=== PATIENT | male | born 1945 | race Caucasian/White ===

== ENCOUNTER 2019-07-22 20:50 | Emergency (ER) | payer OTHER, MEDICARE, MEDICAID, SELFPAY ==
--- NOTE | ~2019-07-22 | CT_ITS ---
EXAMINATION: CT lumbar spine wo con DATE: 07/22/2019 22:20 INDICATION: Low back pain. Fall. TECHNIQUE: Computed tomography (CT) of the lumbar spine was performed without intravenous contrast. A utomated exposure control and iterative reconstruction technique were employed. The dose-length produ ct was 1265.54 mGy-cm. COMPARISON: None FINDINGS: There are 5 stones in right kidney measuring up to 3 mm. There is a 2.2 cm cyst in right ki dney. There is a 4 mm stone in left kidney. There is 7 degrees levocurvature of lumbar spine. There i s 6 mm retrolisthesis of L2 on L3 and 6 mm anterolisthesis of L5 on S1. There is mild chronic anterio r wedging of T12 and L1 vertebral bodies. There is severely decreased disc height at L2-L3, L4-L5, an d L5-S1. There are chronic bilateral L5 pars defects. The following disc levels are specifically disc ussed: L1-L2: The disc is bulging. There is mild bilateral facet joint osteoarthritis. There is no neural fo raminal stenosis. There is no central canal stenosis. L2-L3: The disc is bulging. There is mild bilateral facet joint osteoarthritis. There is moderate elaine ateral neural foraminal stenosis. There is moderate central canal stenosis. L3-L4: The disc is bulging. There is mild bilateral facet joint osteoarthritis. There is mild right a nd moderate left neural foraminal stenosis. There is severe central canal stenosis. L4-L5: The disc is bulging. There is severe bilateral facet joint osteoarthritis. There is moderate b ilateral neural foraminal stenosis. There is severe central canal stenosis. L5-S1: The disc is bulging. There is severe bilateral facet joint osteoarthritis. There is moderate r ight and severe left neural foraminal stenosis. There is mild central canal stenosis. IMPRESSION: 1. No acute fracture. 2. Severe lumbar spondylosis. 3. Chronic bilateral L5 pars defects with grade 1 anterolisthesis of L5 on S1. Reviewed, dictated and finalized at location A. ARE CASE WORKER
--- NOTE | ~2019-07-22 | XR_ITS ---
EXAMINATION: XR chest 1V DATE: 07/22/2019 22:36 INDICATION: Fall. TECHNIQUE: A single frontal view of the chest was obtained. COMPARISON: None. FINDINGS: There is mild atelectasis in left lower lung zone. No pleural effusion or pneumothorax. The heart size is normal. IMPRESSION: 1. Mild atelectasis in left lower lung zone. Reviewed, dictated and finalized at location A. STANT GENERAL MANAGER
--- NOTE | ~2019-07-22 | XR_ITS ---
EXAMINATION: XR hip LT 2V w AP pelvis DATE: 07/22/2019 22:35 INDICATION: Left hip pain. Fall. TECHNIQUE: An anteroposterior view of the pelvis and 3 views of left hip were obtained. COMPARISON: None. FINDINGS: There is lumbar levocurvature and severe spondylosis. No fracture. There is moderate osteoa rthritis of the hips. IMPRESSION: 1. Moderate osteoarthritis of the hips. Reviewed, dictated and finalized at location A. NIC SECTION TECHNICAL LEAD
--- NOTE | ~2019-07-22 | XR_ITS ---
EXAMINATION: XR ankle RT min 3V DATE: 07/22/2019 22:35 INDICATION: Left ankle pain. Fall. TECHNIQUE: 4 views of left ankle were obtained. COMPARISON: None. FINDINGS: There is an old healed fracture of tibial diaphysis. No acute fracture. There is mild midfo ot osteoarthritis. There are enthesophytes at the posterior and plantar aspects of calcaneal tuberosi ty. There is ankle soft tissue swelling. IMPRESSION: 1. No acute fracture. Reviewed, dictated and finalized at location A. ONENT LAB TECH IMPRESSION: 1. No acute fracture.
[2019-07-22 21:06] VITALS: BP 151/84; PULSE 82; RESP 16; TEMP 36.3; O2SAT 97
[2019-07-22 22:00] VITALS: BP 148/82; PULSE 80; RESP 20; O2SAT 98
--- NOTE | 2019-07-22 22:06 | ED.FALL ---
HPI - Fall General Chief Complaint: Fall Stated Complaint: back pain s/p fall Time Seen by Provider: 07/22/19 22:03 Source: patient and family Mode of arrival: ambulatory Limitations: no limitations History of Present Illness HPI Narrative: The pt is a 73 y/o male who presents to the ED c/o a fall which occurred between [id number]. Pt's states that the pt stepped outside to see what the [employer] man had delivered, but he came back in and slipped on the linoleum. He notes that when he fell, he did not hit his head or lose consciousness. He states that he landed on his back, and is currently experiencing left-lumbar back pain, right ankle pain, and left hip pain. He also reports resolved left knee numbness. Pt notes that he takes Aspirin. Denies any bowel or bladder incontinence. MD complaint: fall Onset (ago): hour(s) (4.33 to 5) Fall from: standing Fall witnessed: yes, by family Place fall occurred: home Loss of consciousness: none Symptoms prior to fall: none Context: tripped/slipped Location of injury: back (Lumbar) Associated symptoms (after fall): other (Left knee numbness (Resolved), left hip pain, right ankle pain) Related Data Allergies Allergy/AdvReac Type Severity Reaction Status Date / Time tramadol Allergy Severe Unknown Unverified 07/22/19 22:59 Review of Systems Review of Systems: All systems reviewed & are unremarkable except as noted in HPI and below Musculoskeletal: Musculoskeletal: Reports back pain (Left-lumbar) and Reports other (Right ankle pain, left hip pain) Neurologic: Reports numbness (Left knee (Resolved)) and Denies other (Head injury, loss of consciousness) PMFSH Past Medical History Medical History (Updated 07/22/19 @ 23:20 by Arvind Baig DO) DM II (diabetes mellitus, type II), controlled HTN (hypertension) Surgical History Surgical History (Updated 07/22/19 @ 22:47 by Jerry Almaraz) No history of previous surgery Social History Social History (Updated 07/22/19 @ 22:47 by Jerry Almaraz) Smoking status: Never smoker Gender identity (if verbalized by the patient): Male Exam Narrative: Exam Narrative: APPEARANCE: Well appearing, no apparent distress, well-nourished. HEENT: normocephalic atraumtaic. TMs clear bilaterally. No facial tenderness EYES: PERRL NECK: Supple. No midline tenderness to palpation. Full range of motion without pain RESPIRATORY: No respiratory distress. Clear to auscultation bilaterally CARDIOVASCULAR: Regular rate and rhythm without murmurs rubs or gallops. ABDOMINAL: Soft, nontender, nondistended, no rebound or guarding MUSCULOSKELETAl: Moves all extremities. No tenderness to palpation of bilateral upper extremities. No tenderness palpation of the right hip or knee, tender palpation of the right anterior lateral medial ankle, no swelling or ecchymosis, tender palpation of the left lateral hip, pain with flexion greater than 45 degrees, no tenderness of left knee or ankle, bilateral dorsalis pedis pulse 2+, neurovascular intact no clubbing cyanosis or edema Back: No midline thoracic or lumbar tenderness to palpation tender palpation over left paravertebral muscles L3-5 (fretfulness region, pain increased with forward flexion Pelvis: Stable, nontender NEURO: Awake and alert ?3. Follows commands. Speech normal. No focal deficits. Patient has pinprick sensation down the bilateral legs with no numbness or deficits SKIN:: Warm, dry. Normal Color Course Course Emergency Course: Patient able to get up and ambulate in ED with no difficulty Discussed with patient results of workup and diagnosis. Discussed need for follow-up with primary care, proper use of medication, and reasons to return to the emergency department. Patient understands and agrees to current treatment plan Vital Signs Vital signs: Vital Signs Temperature 97.4 F L 07/22/19 21:06 Pulse Rate 82 07/22/19 21:06 Respiratory Rate 16 07/22/19 21:06 Blood Pressure 151/84 H 07/22/19 21:06
[2019-07-22 23:38] VITALS: BP 146/85; PULSE 86; RESP 19; TEMP 36.8; O2SAT 100
--- NOTE | 2019-07-23 08:23 | PCCCNOTE ---
Contacted [facility]: Spoke with MAREN Nielson. Gave ED info and faxed ED progress notes and d/c plan.
== END 2019-07-22 23:40 | disposition home or self-care (01) ==
PROVIDERS: Emergency Provider Emergency Medicine
DX: M54.5 Low back pain (principal); S90.01XA Contusion of right ankle, initial encounter; S70.02XA Contusion of left hip, initial encounter; E11.9 Type 2 diabetes mellitus without complications; I10 Essential (primary) hypertension; M47.816 Spondylosis without myelopathy or radiculopathy, lumbar region; Z79.82 Long term (current) use of aspirin; W01.0XXA Fall on same level from slipping, tripping and stumbling without subsequent striking against object, initial encounter
CPT/HCPCS: 71045; 72131; 73502; 73521; 73610; 99284; A9270

== ENCOUNTER 2020-05-30 21:52 | Emergency (ER) | payer OTHER, MEDICARE, SELFPAY ==
--- NOTE | ~2020-05-30 | XR_ITS ---
EXAMINATION: XR chest 2V DATE: 05/31/2020 03:55 INDICATION: Shortness of breath. TECHNIQUE: Frontal and lateral views of the chest were obtained. COMPARISON: Chest single view 07/22/2019 FINDINGS: The chest demonstrates clear lungs without pneumonia, pleural effusion, or pneumothorax. Th e heart size is normal. IMPRESSION: 1. No acute cardiopulmonary disease. Reviewed, dictated and finalized at location A.
[2020-05-30 22:03] VITALS: BP 146/110; PULSE 90; RESP 20; TEMP 36.4; O2SAT 97
[2020-05-30 23:38] VITALS: BP 143/86; PULSE 92; RESP 22; TEMP 35.9; O2SAT 98
--- NOTE | 2020-05-31 02:39 | ECG_ITS ---
Measurements Intervals [place] Rate: 84 P: 33 IA: 219 QRS: -38 QRSD: 128 T: 102 QT: 395 QTc: 469 Interpretive Statements SINUS RHYTHM WITH FIRST DEGREE AV BLOCK LEFT AXIS DEVIATION RIGHT BUNDLE BRANCH BLOCK LEFT VENTRICULAR HYPERTROPHY AND ST-T CHANGE CONSIDER INFERIOR INFARCT, AGE INDETERMINATE ABNORMAL ECG Electronically Signed On 05-31-2020 7:08:37 CDT by Tommy Mcneal D.O.
[2020-05-31 03:09] VITALS: BP 153/86; PULSE 88; RESP 18; O2SAT 96
[2020-05-31 03:20] LABS: Basophils Percent Auto 0.6 % (0.2-1.2); Eosinophils Absolute Auto 0.1 K/mm3 (0-0.3); Eosinophils Percent Auto 1.5 % (0-4.4); Hematocrit 43.3 % (42.0-52.0); Hemoglobin 14.6 g/dL (14.0-18.0); Immature Granulocyte Absolute 0.06 K/mm3 (0.00-0.031); Immature Granulocyte Percent A 0.9 % (0-0.5); Lymphocytes Absolute Auto 2.06 K/mm3 (0.9-3.2); Lymphocytes Percent Auto 30.5 % (18.3-44.2); Mean Corpuscular HGB Conc 33.7 g/dl (32-36); Mean Corpuscular Hemoglobin 29.3 pg (26-34); Mean Corpuscular Volume 86.9 fl (80-100); Mean Platelet Volume 8.9 fl (7.4-10.4); Monocytes Absolute Auto 0.5 K/mm3 (0.1-0.6); Monocytes Percent Auto 7.5 % (2.6-8.5); Platelet Count Result 184 k/mm3 (150-375); Red Blood Count 4.98 M/mm3 (4.6-6.20); Red Cell Distribution Width 13.5 % (11.5-14.5); White Blood Count 6.8 K/mm3 (4.5-10.0)
--- NOTE | 2020-05-31 03:26 | ED.GENADULT ---
HPI - General Adult General Chief complaint: Anxiety Stated complaint: head congestion, anxiety Time Seen by Provider: 05/31/20 02:24 Source: patient Mode of arrival: ambulatory Limitations: no limitations History of Present Illness HPI narrative: This patient is a 74 year old male with history of hypertension, CAD, Diabetes mellitus, anxiety, PTSD who presents for anxiety and bilateral feet pain. PAtient reports months of bilateral feet pain. He describes his pain has burning and constant. He does reports history of neuropathy diagnosis and he takes gabapentin. He reports he was evluated at the [facility] for his pain. He also reports bilateral feet swelling for several months. He reports that he is having difficulty sleeping due to his anxiety. HE is sleeping on the couch with his feet hanging down. He reports he may be having sob due to anxiety but not with exertion. He also denies chest pain, fever, vomiting. Related Data Allergies Allergy/AdvReac Type Severity Reaction Status Date / Time tramadol Allergy Severe Unknown Verified 05/31/20 03:14 Review of Systems Review of Systems: All systems reviewed & are unremarkable except as noted in HPI and below Constitutional: Constitutional: Denies chills and Denies fever(s) Cardiovascular: Cardiovascular: Denies chest pain Respiratory: Respiratory: Denies cough, Denies dyspnea and Denies wheezing Gastrointestinal: Gastrointestinal: Denies abdominal pain, Denies diarrhea, Denies nausea and Denies vomiting Neurologic: Denies focal weakness and Reports numbness Psychiatric: Psychiatric: Reports anxiety, Denies homicidal ideation and Denies suicidal ideation [facility] Past Medical History Medical History (Updated 05/31/20 @ 04:58 by Arlen Palumbo MD) DM II (diabetes mellitus, type II), controlled HTN (hypertension) Surgical History Surgical History (Updated 07/22/19 @ 22:47 by Jerry Almaraz) No history of previous surgery Social History Social History (Updated 07/22/19 @ 22:47 by Jerry Almaraz) Smoking status: Never smoker Gender identity (if verbalized by the patient): Male Exam Const: General: no acute distress and alert Nutritional Appearance: obese Orientation/consciousness: patient oriented x3 HENMT: Head: normocephalic and atraumatic Face and sinus: face symmetric Mouth: Yes Normal oral and palatal mucosa present, Yes lip normal, Yes oropharynx normal and Yes moist mucous membranes Teeth and gingiva: abnormal tooth and associated gingiva Throat: posterior oropharynx normal, tonsils normal and uvula midline Eyes: Pupils: Equal, round and reactive pupils present EOM: EOMs intact bilaterally Chest: Chest palpation & inspection: normal inspection of the chest Resp: Effort & Inspection: normal respiratory effort, no retractions and no use of accessory muscles Auscultation: clear to auscultation bilaterally and no wheezes GI: GI Palp: Yes Soft to palpation, No Tenderness to palpation present (GI), No Guarding due to palpation present (GI) and No Rigid due to palpation Neuro: General: patient oriented x3 and moves all extremities Extrem: Other: bilateral pedal edema Course Reevaluation(s) Reevaluation #1: PAtient reports he feels better with feet elevated. He has bilateral palpable pedal pulses. I discussed his pain appears to be due to neuropathy. He is unable to tell me what he is on for anxiety or his neuropathy . I Discussed he will need to speak to his PCP about possible increase in dose of gabapentin. Date: 05/31/20 Time: 04:55 Vital Signs Vital signs: Vital Signs Temperature 97.5 F L 05/30/20 22:03 Pulse Rate 90 05/30/20 22:03 Respiratory Rate 20 05/30/20 22:03 Blood Pressure 146/110 H 05/30/20 22:03 Pulse Oximetry 97 05/30/20 22:03 Temperature 96.6 F L 05/30/20 23:38 Pulse Rate 82 05/31/20 05:18 Respiratory Rate 18 05/31/20 05:18 Blood Pressure 142/79 H 05/31/20 05:18 Pulse Oxime
[2020-05-31 03:33] LABS: Alanine Aminotransferase 28 U/L (4-50); Albumin Level 4.1 g/dL (3.5-5.1); Alkaline Phosphatase 97 U/L (38-126); Anion Gap 13 mmol/L (8-16); Aspartate Amino Transferase 23 U/L (17-59); Bilirubin,Total 0.9 mg/dL (0.2-1.3); Blood Urea Nitrogen 16 mg/dL (9-20); Carbon Dioxide 24 mmol/L (22-30); Chloride 98 mmol/L (98-107); Estimated CRCL calculation 83 ml/min; Estimated Glomerular Filt Rate > 60; Glucose 361 mg/dL (75-110); Sodium 135 mmol/L (137-145)
[2020-05-31 03:42] LABS: NT Pro B Type Natriuretic Pept 681 PG/ML (5-100)
[2020-05-31 04:20] VITALS: BP 151/98; PULSE 87; RESP 18; O2SAT 99
[2020-05-31 05:18] VITALS: BP 142/79; PULSE 82; RESP 18; O2SAT 96
== END 2020-05-31 05:20 | disposition home or self-care (01) ==
PROVIDERS: Emergency Provider General Practice
DX: E11.42 Type 2 diabetes mellitus with diabetic polyneuropathy (principal); E11.65 Type 2 diabetes mellitus with hyperglycemia; F41.9 Anxiety disorder, unspecified; I25.10 Atherosclerotic heart disease of native coronary artery without angina pectoris; I10 Essential (primary) hypertension; I44.0 Atrioventricular block, first degree; I45.10 Unspecified right bundle-branch block; R94.31 Abnormal electrocardiogram [ECG] [EKG]; I51.7 Cardiomegaly; F43.10 Post-traumatic stress disorder, unspecified
CPT/HCPCS: 36415; 71046; 80053; 83880; 85025; 93005; 99283

== ENCOUNTER 2020-06-09 21:13 | Emergency (ER) | payer MEDICARE, OTHER, SELFPAY ==
[2020-06-09 21:15] VITALS: BP 151/81; PULSE 94; RESP 16; TEMP 36.4; O2SAT 98
--- NOTE | 2020-06-09 21:25 | ED.LOWEXIN ---
HPI - Extremity Injury (Lower) General Chief Complaint: Extremity Injury, Lower Stated Complaint: my foot Time Seen by Provider: 06/09/20 21:18 History of Present Illness HPI Narrative: History limited by very poor historian. 74 yo male presents from home for foot pain. The pain is bilateral, but worst at the base of his left first toe where he has a red dot. He reports that he was discharged from [facility]. He is not clear on why he was admitted there. He notes that his blood sugar has been poorly controlled. No injury, fever, wound. Related Data Allergies Allergy/AdvReac Type Severity Reaction Status Date / Time tramadol Allergy Severe Unknown Verified 05/31/20 03:14 Review of Systems Review of Systems: All systems reviewed & are unremarkable except as noted in HPI and below Constitutional: Constitutional: Denies fever(s) and Denies weakness Cardiovascular: Cardiovascular: Denies chest pain Respiratory: Respiratory: Denies dyspnea Gastrointestinal: Gastrointestinal: Denies abdominal pain, Denies nausea and Denies vomiting Musculoskeletal: Musculoskeletal: Denies back pain Neurologic: Denies dizziness and Denies weakness [facility] Past Medical History Medical History (Updated 06/09/20 @ 22:59 by Nolan Sauer MD) DM II (diabetes mellitus, type II), controlled HTN (hypertension) Surgical History Surgical History (Updated 07/22/19 @ 22:47 by Jerry Almaraz) No history of previous surgery Social History Social History (Updated 07/22/19 @ 22:47 by Jerry Almaraz) Smoking status: Never smoker Gender identity (if verbalized by the patient): Male Exam Const: General: no acute distress and alert Nutritional Appearance: obese Orientation/consciousness: patient oriented x3 HENMT: Head: normal to inspection Resp: Effort & Inspection: normal respiratory effort Auscultation: clear to auscultation bilaterally Cardio: Rate: regular rate Rhythm: regular rhythm Other: 1+ bilateral DP pulses Skin: Other: Mild erythema to left first MTP Neuro: General: patient oriented x3 and no focal motor deficits Speech: normal speech Gait exam (Neuro): Normal gait present Extrem: Other: 1+ bilateral lower leg edema Course Vital Signs Vital signs: Vital Signs Temperature 36.4 C 06/09/20 21:15 Pulse Rate 94 06/09/20 21:15 Respiratory Rate 16 06/09/20 21:15 Blood Pressure 151/81 H 06/09/20 21:15 Pulse Oximetry 98 06/09/20 21:15 Temperature 36.4 C 06/09/20 21:15 Pulse Rate 94 06/09/20 21:15 Respiratory Rate 16 06/09/20 21:15 Blood Pressure 151/81 H 06/09/20 21:15 Pulse Oximetry 98 06/09/20 21:15 MDM - Extremity Injury (Lower) MDM Narrative Medical decision making narrative: Labs and presentation most consistent with gout. I do not believe there is adequate fluid in the joint for arthrocentesis. He is not a good candidate for glucocorticoids due to his poorly controlled diabetes. I will initiate a short course of colchicine. He likely also has neuropathic pain. Medical Records Attestation: I reviewed the patient's medical records. Lab Data Attestation: I reviewed the patient's lab results. Result diagrams: 06/09/20 21:51 06/09/20 21:51 Labs: Lab Results 06/09/20 06/09/20 06/09/20 Range/Units 21:51 21:51 21:51 WBC 7.0 (4.5-10.0) K/mm3 RBC 4.82 (4.6-6.20) M/mm3 Hgb 14.1 (14.0-18.0) g/dL Hct 42.0 (42.0-52.0) % MCV 87.1 (80-100) fl MCH 29.3 (26-34) pg MCHC 33.6 (32-36) g/dl RDW 13.8 (11.5-14.5) % Plt Count 178 (150-375) k/mm3 MPV 8.8 (7.4-10.4) fl Immature Gran % (Auto) 0.4 (0-0.5) % Neut % (Auto) 58.8 (45.5-73.1) % Lymph % (Auto) 28.5 (18.3-44.2) % [place] % (Auto) 10.3 H (2.6-8.5) % Eos % (Auto) 1.7 (0-4.4) % Baso % (Auto) 0.3 (0.2-1.2) % Lymph # (Auto) 2.00 (0.9-3.2) K/mm3 [place] # (Auto) 0.7 H (0.1-0.6) K/mm3 Eos # (Auto) 0.1 (0-0.3) K/
[2020-06-09 21:59] LABS: Basophils Percent Auto 0.3 % (0.2-1.2); Eosinophils Absolute Auto 0.1 K/mm3 (0-0.3); Eosinophils Percent Auto 1.7 % (0-4.4); Hemoglobin 14.1 g/dL (14.0-18.0); Immature Granulocyte Absolute 0.03 K/mm3 (0.00-0.031); Immature Granulocyte Percent A 0.4 % (0-0.5); Lymphocytes Percent Auto 28.5 % (18.3-44.2); Mean Corpuscular HGB Conc 33.6 g/dl (32-36); Mean Corpuscular Hemoglobin 29.3 pg (26-34); Mean Corpuscular Volume 87.1 fl (80-100); Mean Platelet Volume 8.8 fl (7.4-10.4); Monocytes Absolute Auto 0.7 K/mm3 (0.1-0.6); Monocytes Percent Auto 10.3 % (2.6-8.5); Neutrophils Absolute Auto 4.1 K/mm3 (1.3-6.7); Neutrophils Percent Auto 58.8 % (45.5-73.1); Platelet Count Result 178 k/mm3 (150-375); Red Blood Count 4.82 M/mm3 (4.6-6.20); Red Cell Distribution Width 13.8 % (11.5-14.5)
[2020-06-09 22:07] LABS: Add Urine Microscopic? YES; Appearance Urine Clear (Clear); Bilirubin Urine Negative (Negative); Blood Urine Negative (Negative); Color Urine Yellow (Yellow); Glucose Urine UA 3+ mg/dL (Negative); Ketones Urine Negative (Negative); Leukocyte Esterase Ur Negative LEU/UL (Negative); Nitrate Urine Negative (Negative); Protein Urine 1+ mg/dL (Negative); RBC Urine 0-2 /hpf (0-2); Specific Grav Ur 1.012 (1.001-1.035); Squamous Epithelial Cell Urine Rare /hpf (Few); Urobilinogen Urine Negative mg/dL (<2.0); WBC Urine 0-3 /hpf
[2020-06-09 22:11] LABS: INR 1.1; Prothrombin Time 13.5 Seconds (11.1-14.7)
[2020-06-09 22:12] LABS: Partial Thromboplastin Time 26.6 SECONDS (22.3-36.8)
[2020-06-09 22:15] LABS: Alanine Aminotransferase 24 U/L (4-50); Albumin Level 3.9 g/dL (3.5-5.1); Alkaline Phosphatase 79 U/L (38-126); Anion Gap 9 mmol/L (8-16); Aspartate Amino Transferase 24 U/L (17-59); Bilirubin,Total 0.7 mg/dL (0.2-1.3); Blood Urea Nitrogen 12 mg/dL (9-20); Calcium 8.9 mg/dL (8.4-10.2); Carbon Dioxide 25 mmol/L (22-30); Chloride 99 mmol/L (98-107); Estimated CRCL calculation 95 ml/min; Estimated Glomerular Filt Rate > 60; Glucose 276 mg/dL (75-110); Potassium 3.7 mmol/L (3.4-5.0); Sodium 133 mmol/L (137-145); Uric Acid 5.4 mg/dL (3.5-8.5)
[2020-06-09 22:24] LABS: Troponin I < 0.012 ng/mL (0.000-0.034)
[2020-06-09 22:25] LABS: Erythrocyte Sedimentation Rate 25 mm/hr (0-20)
[2020-06-09] MEDS: COLCHICINE 0.6 MG TABLET 1.2 MG PO (22:45)
[2020-06-09] MEDS: COLCHICINE 0.6 MG TABLET PO (23:45)
[2020-06-09 23:47] VITALS: BP 146/89; PULSE 97; RESP 18; TEMP 36.9; O2SAT 100
== END 2020-06-10 00:22 | disposition home or self-care (01) ==
PROVIDERS: Emergency Provider Emergency Medicine
DX: M79.671 Pain in right foot (principal); E11.9 Type 2 diabetes mellitus without complications; I10 Essential (primary) hypertension
CPT/HCPCS: 36415; 80053; 81001; 83605; 84484; 84550; 85025; 85610; 85652; 85730; 86140; 99284; A9270

== ENCOUNTER 2020-07-04 11:56 | Emergency (ER) | payer OTHER, MEDICARE, SELFPAY ==
--- NOTE | ~2020-07-04 | XR_ITS ---
XR chest 1V portable DATE: 07/04/2020 14:45 INDICATION: Shortness of breath for 3 days. Diabetes type 2 TECHNIQUE: Portable upright AP chest on 07/04/2020 at 1446 hours COMPARISON: 05/31/2020 PA and lateral chest FINDINGS: Borderline heart size. There is aortic calcification and tortuosity. No hilar or mediastina l enlargement is evident. No pulmonary infiltrate or consolidation, pleural effusion or pulmonary vas cular congestion or pneumothorax is noted. Diffuse osteopenia. There is degenerative spurring of the thoracic spine. IMPRESSION: No active pulmonary disease or significant change since 05/31/2020 Reviewed, dictated and finalized at location B. PATIONAL HEALTH SPECIALIST
--- NOTE | 2020-07-04 12:04 | ECG_ITS ---
Measurements Intervals [place] Rate: 110 P: 4 KS: 156 QRS: -40 QRSD: 147 T: 128 QT: 367 QTc: 498 Interpretive Statements SINUS TACHYCARDIA LEFT AXIS DEVIATION RIGHT BUNDLE BRANCH BLOCK LEFT VENTRICULAR HYPERTROPHY WITH ST-T CHANGE INFERIOR INFARCT, AGE INDETERMINATE ABNORMAL ECG Electronically Signed On 07-04-2020 14:57:07 PIT LABORER by Tommy Mcneal D.O.
[2020-07-04 12:29] VITALS: BP 134/64; PULSE 109; RESP 20; TEMP 37.4; O2SAT 97
[2020-07-04 12:38] LABS: Basophils Percent Auto 0.3 % (0.2-1.2); Eosinophils Absolute Auto 0.1 K/mm3 (0-0.3); Eosinophils Percent Auto 0.4 % (0-4.4); Hematocrit 42.7 % (42.0-52.0); Hemoglobin 14.3 g/dL (14.0-18.0); Immature Granulocyte Absolute 0.06 K/mm3 (0.00-0.031); Immature Granulocyte Percent A 0.4 % (0-0.5); Lymphocytes Percent Auto 15.3 % (18.3-44.2); Mean Corpuscular HGB Conc 33.5 g/dl (32-36); Mean Corpuscular Hemoglobin 29.1 pg (26-34); Mean Platelet Volume 8.7 fl (7.4-10.4); Monocytes Absolute Auto 1.1 K/mm3 (0.1-0.6); Monocytes Percent Auto 7.2 % (2.6-8.5); Neutrophils Percent Auto 76.4 % (45.5-73.1); Platelet Count Result 180 k/mm3 (150-375); Red Blood Count 4.91 M/mm3 (4.6-6.20); Red Cell Distribution Width 13.8 % (11.5-14.5); White Blood Count 15.7 K/mm3 (4.5-10.0)
[2020-07-04 12:51] LABS: Alanine Aminotransferase 19 U/L (4-50); Albumin Level 4.2 g/dL (3.5-5.1); Alkaline Phosphatase 66 U/L (38-126); Anion Gap 10 mmol/L (8-16); Aspartate Amino Transferase 22 U/L (17-59); Bilirubin,Total 0.9 mg/dL (0.2-1.3); Blood Urea Nitrogen 11 mg/dL (9-20); Calcium 8.9 mg/dL (8.4-10.2); Carbon Dioxide 27 mmol/L (22-30); Chloride 100 mmol/L (98-107); Estimated CRCL calculation 91 ml/min; Estimated Glomerular Filt Rate > 60; Glucose 235 mg/dL (75-110); Sodium 137 mmol/L (137-145)
[2020-07-04 14:31] VITALS: BP 139/85; PULSE 110; RESP 22; O2SAT 96
[2020-07-04 14:32] VITALS: PULSE 110
--- NOTE | 2020-07-04 14:47 | ED.SOB ---
HPI - SOB/Dyspnea General Chief Complaint: Shortness of Breath/Dyspnea Stated Complaint: can't breath Time Seen by Provider: 07/04/20 14:39 History of Present Illness HPI Narrative: 74 yo male with h/o CAD presents to the ED for SOB. He says tat he has had intermittent SOB for quite some time. Now constant. Unable to lie flat. He does have some BLE swelling. No CP, fever, cough. He fell on the way to the room. He reports no pain or injury from the fall. He did not hit his head. [facility]. Related Data Allergies Allergy/AdvReac Type Severity Reaction Status Date / Time tramadol Allergy Severe Unknown Verified 07/04/20 14:49 Review of Systems Review of Systems: All systems reviewed & are unremarkable except as noted in HPI and below Constitutional: Constitutional: Denies chills, Denies fever(s) and Denies weakness Cardiovascular: Cardiovascular: Denies chest pain Respiratory: Respiratory: Denies cough and Reports dyspnea Gastrointestinal: Gastrointestinal: Denies abdominal pain, Denies nausea and Denies vomiting Genitourinary: Genitourinary: Denies dysuria Neurologic: Denies dizziness and Denies weakness [facility] Past Medical History Medical History DM II (diabetes mellitus, type II), controlled HTN (hypertension) Surgical History Surgical History (Updated 07/22/19 @ 22:47 by Jerry Almaraz) No history of previous surgery Social History Social History (Updated 07/22/19 @ 22:47 by Jerry Almaraz) Smoking status: Never smoker Gender identity (if verbalized by the patient): Male Exam Const: General: no acute distress, alert and ill appearing chronically Orientation/consciousness: patient oriented x3 HENMT: Head: normal to inspection Resp: Effort & Inspection: normal respiratory effort Auscultation: clear to auscultation bilaterally Cardio: Rate: tachycardic Rhythm: regular rhythm GI: GI Palp: Yes Soft to palpation and No Tenderness to palpation present (GI) Skin: General skin exam: normal color Neuro: General: patient oriented x3, moves all extremities, no focal motor deficits and CN's II-XI intact bilaterally Speech: normal speech Extrem: General: edema (1-2+) bilateral Course Vital Signs Vital signs: Vital Signs Temperature 37.4 C 07/04/20 12:29 Pulse Rate 109 H 07/04/20 12:29 Respiratory Rate 20 07/04/20 12:29 Blood Pressure 134/64 07/04/20 12:29 Pulse Oximetry 97 07/04/20 12:29 Temperature 37.4 C 07/04/20 12:29 Pulse Rate 110 H 07/04/20 14:32 Respiratory Rate 22 H 07/04/20 14:31 Blood Pressure 139/85 07/04/20 14:31 Pulse Oximetry 96 07/04/20 14:31 MDM - SOB/Dyspnea MDM Narrative Medical decision making narrative: I thught there might be a subtle infiltrate in RLL. I tried to obtain a CTA of the chest to rule ut PE and better visualize this area. The patient said that he could not tolerate laying flat or passing through the machine and refused it even with anxiolysis. He also has a leukocytosis making it more likely that he does have pneumonia. I will treat him for this despite the diagnosis being uncertain. He did receive some benefit from albuterol so I will provide this as well. He also has significant fluid retention and would probably benefit from treatment with lasix. Differential Diagnosis Differential diagnosis: Likely acute exacerbation of chronic obstructive airways disease, congestive heart failure, community acquired pneumonia and pulmonary embolism Medical Records Attestation: I reviewed the patient's medical records. Lab Data Attestation: I reviewed the patient's lab results. Result diagrams: 07/04/20 12:32 07/04/20 12:32 Labs: Lab Results 07/04/20 07/04/20 07/04/20 Range/Units 12:32 12:32 12:32 WBC 15.7 H (4.5-10.0) K/mm3 RBC 4.91 (4.6-6.20) M/mm3 Hgb 14.3 (14.0-18.0) g/dL Hct 42.7 (42.0-52.0) % MCV
--- NOTE | 2020-07-04 15:04 | PC.NURSE ---
Pt assisted with standing to void, then getting back to bed. Pt appears to be winded with doing this activity. Sp02 97% after assisted back to bed.
--- NOTE | 2020-07-04 15:15 | PC.NURSE ---
Pt down to CT for pulmonary study. Per wafer fab technician pt was unable to lie down, attempted to use the sponge to prop his head up; pt continued to be unable to tolerate. Ambulated around the table several times and then refused the test. Assisted back to ED. Dr. Sauer made aware.
--- NOTE | 2020-07-04 15:32 | PC.NURSE ---
Pt offered oxygen to assist with CT scan, states nope, I won't be able to do it. I'm too claustrophobic . Dr. Sauer made aware. Lab contacted about add on tests, states they were aware and will look for the results.
[2020-07-04 15:53] LABS: NT Pro B Type Natriuretic Pept 400 PG/ML (5-100); Troponin I 0.016 ng/mL (0.000-0.034)
--- NOTE | 2020-07-04 16:14 | PC.NURSE ---
Pt standing at the door, dressed. When this RN approached pt, he says when am I getting the hell outta here? . Explained that Dr. Sauer would like the CT of the chest because the plain film is not showing anything and the pt continues to look winded and his heart rate is elevated. Pt offered ativan IVP, pt states nope. I'm not doing that. I had a bad experience and I'm not getting a CT, period . Dr. Sauer made aware. Pt signs refusal of care form. Pt states I should've just went to [facility]. IV dc'd cath intact.
[2020-07-04] MEDS: ALBUTEROL SULFATE (*SP) AEROSOL 1 PUFF 4 PUFF INHALATION (16:19)
--- NOTE | 2020-07-04 16:20 | PC.NURSE ---
RT at bedside for inhaler administration and instruct.
--- NOTE | 2020-07-04 16:58 | PC.NURSE ---
Call to [phone] per pt request to speak with Marta my old lady . Call to number, and Marta answers, but states she doesn't know anyone by the name of Ke Aviles and is sorry for the misunderstanding. Call to intake to request a number for a ride for patient.
== END 2020-07-04 16:52 | disposition home or self-care (01) ==
PROVIDERS: Emergency Medicine; Emergency Provider Emergency Medicine
DX: J18.9 Pneumonia, unspecified organism (principal); I25.10 Atherosclerotic heart disease of native coronary artery without angina pectoris; E11.9 Type 2 diabetes mellitus without complications; I10 Essential (primary) hypertension; R00.0 Tachycardia, unspecified; I45.10 Unspecified right bundle-branch block; R94.31 Abnormal electrocardiogram [ECG] [EKG]; I51.7 Cardiomegaly
CPT/HCPCS: 36415; 71045; 80053; 83880; 84484; 85025; 93005; 99284; A9270